=== PATIENT | male | born 1960 | race Caucasian/White ===

== ENCOUNTER 2016-12-19 17:01 | Emergency (ER) | payer OTHER ==
[~2016-12-19] VITALS: Ht 152.4 cm; Wt 70.5 kg
[~2016-12-19 17:01] MED LIST: ATORVASTATIN PO; PEPCID PO; POLY10DR19 RIGHT EYE; PRILOSEC PO
[2016-12-19 17:04] VITALS: Ht 152.4 cm; Wt 70.5 kg
[2016-12-19] MEDS ORDERED: BACI28.34 TOP (18:18)
[2016-12-19 18:31] VITALS: BP 119/66; PULSE 66; RESP 20
--- NOTE | 2016-12-21 11:10 | ERD ---
ER Documentation Chief Complaint Chief Complaint Complains of laceration to left index finger today HPI Patient is a [id number] 56-year-old male presenting to the emergency department with complaints of laceration to his left index finger which occurred a few minutes prior to arrival. Tetanus is up-to-date. The patient has constant, mild pain. Bleeding was controlled. He denies fevers, chills, or other symptoms currently. ROS All systems reviewed and are negative except as per history of present illness. Medications Home Meds Active Scripts Bacitracin* (Bacitracin Zinc Oint*) 28.35 Gm Oint, 1 APPLIC TOP BID, #1 TUB APPLI TO Prov:MERLIN HE PA-C 12/19/16 Polymyxin B Sulfate-TMP* (Polymyxin B-TMP Eye Drops*) 10 Ml Drops, 1 DROP RIGHT EYE QID for 7 Days, EA Prov:DORIS VALLADARES MD 07/10/15 Reported Medications [Atorvastatin] No Conflict Check, PO DAILY 10/05/14 [Pepcid] No Conflict Check, PO DAILY 10/05/14 [Prilosec] No Conflict Check, PO DAILY 10/05/14 Allergies Allergies: Coded Allergies: No Known Allergies (Verified Allergy, Unknown, 10/05/14) PMhx/Soc History of Surgery: No Anesthesia Reaction: No Hx Neurological Disorder: No Hx Respiratory Disorders: No Hx Cardiac Disorders: No Hx Psychiatric Problems: No Hx Miscellaneous Medical Probl: Yes (HIGH CHOLESTEROL) Hx Alcohol Use: Yes (OCCASIONAL) Hx Substance Use: No Hx Tobacco Use: No Smoking Status: Never smoker Physical Exam Vitals Vital Signs Date Time Temp Pulse Resp B/P Pulse Ox O2 Delivery O2 Flow Rate FiO2 12/19/16 18:31 66 20 119/66 98 Room Air 12/19/16 17:04 97.7 95 20 136/76 98 Physical Exam Const: Nontoxic, well-appearing male in no acute distress. Head: Atraumatic Eyes: Normal Conjunctiva ENT: Normal External Ears, Nose and Mouth. Skin: There is an approximate 1 cm laceration noted to the medial aspect of the left index finger with no evidence of foreign body. No active bleeding currently. Back: No midline or flank tenderness Ext: No cyanosis, or edema Neur: Awake and alert Psych: Normal Mood and Affect Procedures/MDM 56-year-old male presents to the emergency department with complaints of laceration to left index finger. Patient tolerated procedure well with no complications. Laceration Repair by me: Anesthesia: 1% lidocaine locally Location: Medial aspect of left index finger Tendon/Joint/Nerves: No injury Foreign body: None detected after copious irrigation and exploration Technique: Simple Interrupted Sutures Complexity: No subcutaneous sutures/mucosal repair/ edge excision Post Closure Length: 1 cm Patient's bleeding was easily controlled in the department and there is no indication of anemia. No evidence of compartment syndrome, neurologic injury, vascular injury, open joint, tendon laceration, or foreign body. Patient is appropriate for outpatient follow up. 48 hour wound check. Scar minimization instructions given. Departure Diagnosis: Primary Impression: Laceration of left index finger Encounter type: initial encounter Damage to nail status: without damage Foreign body presence: without foreign body Qualified Code: S61.211A - Laceration of left index finger without foreign body without damage to nail, initial encounter Condition: Fair Patient Instructions: Laceration, Hand Additional Instructions: Return in 48 hours for wound recheck. Return in 7 days from today for suture removal. Keep the wound clean, dry, covered, and use bacitracin. Follow up with your PCP within the next 1-3 days for a repeat evaluation. If you require a referral to a specialist, your Primary Care Provider may be able to provide this for you. In most patient cases, a referral is not required. If you have further questions regarding this matter, please ask your Primary Care Provider. Return the the emergency department immediately if symptoms worsen or change. If you have any questions regarding medications, ask your pharmacist or us before you leave. If any adverse reactions, occur while taking your medications, discontinue the treatment and return to the emergency department immediately. If any new or worsening symptoms, uncontrolled fevers, or other unexplained symptoms occur, return to the emergency department immediately. Take your medications as directed, and complete the entire course of treatment. MERLIN HE PA-C Dec 21, 2016 11:10
== END 2016-12-19 18:32 | disposition home or self-care (01) ==
LOC: FTE 17:01
DX: S61.211A Laceration without foreign body of left index finger without damage to nail, initial encounter (principal); X58.XXXA Exposure to other specified factors, initial encounter; Y92.9 Unspecified place or not applicable
CPT/HCPCS: 12001; Z7502

== ENCOUNTER 2016-12-22 14:15 | Emergency (ER) | payer OTHER ==
[~2016-12-22] VITALS: Ht 167.6 cm; Wt 70.5 kg
[~2016-12-22 14:15] MED LIST changes: +BACI28.34 TOP
[2016-12-22 14:44] VITALS: Ht 167.6 cm; Wt 70.5 kg
--- NOTE | 2016-12-22 18:14 | ERD ---
ER Documentation Chief Complaint Chief Complaint 2days wound check left 2nd finger HPI Patient is a 56-year-old male presenting to the emergency department for wound check of his left index finger. He has no complaints currently. ROS All systems reviewed and are negative except as per history of present illness. Medications Home Meds Active Scripts Bacitracin* (Bacitracin Zinc Oint*) 28.35 Gm Oint, 1 APPLIC TOP BID, #1 TUB APPLI TO Prov:MERLIN HE PA-C 12/19/16 Polymyxin B Sulfate-TMP* (Polymyxin B-TMP Eye Drops*) 10 Ml Drops, 1 DROP RIGHT EYE QID for 7 Days, EA Prov:DORIS VALLADARES MD 07/10/15 Reported Medications [Atorvastatin] No Conflict Check, PO DAILY 10/05/14 [Pepcid] No Conflict Check, PO DAILY 10/05/14 [Prilosec] No Conflict Check, PO DAILY 10/05/14 Allergies Allergies: Coded Allergies: No Known Allergies (Verified Allergy, Unknown, 10/05/14) PMhx/Soc History of Surgery: No Anesthesia Reaction: No Hx Neurological Disorder: No Hx Respiratory Disorders: No Hx Cardiac Disorders: No Hx Psychiatric Problems: No Hx Miscellaneous Medical Probl: Yes (HIGH CHOLESTEROL) Hx Alcohol Use: Yes (OCCASIONAL) Hx Substance Use: No Hx Tobacco Use: No Smoking Status: Never smoker Physical Exam Vitals Vital Signs Date Time Temp Pulse Resp B/P Pulse Ox O2 Delivery O2 Flow Rate FiO2 12/22/16 14:44 98.4 99 18 124/72 98 Physical Exam Const: Nontoxic, well-appearing male in no acute distress. Head: Atraumatic Eyes: Normal Conjunctiva Skin: [address] to the left index finger on the ventral surface over a well healing laceration. Procedures/MDM 56-year-old male presents for wound check. Laceration appears to be healing well with no signs of cellulitis or other emergency. Patient is to follow-up in 7 days from the date of his suture placement to have the sutures removed. Patient was in agreement. The patient may follow-up with his primary care physician or return to this emergency room sooner if any new or worsening symptoms occur. Departure Diagnosis: Primary Impression: Encounter for wound re-check Condition: Fair Patient Instructions: Wound Care Referrals: LATISHA NORRIS (PCP) Additional Instructions: Make sure to have her sutures removed before you leave for your vacation either here or with your primary care doctor. Call your primary care doctor TOMORROW for an appointment during the next 2-3 days.See the doctor sooner or return here if your condition worsens before your appointment time. MERLIN HE PA-C Dec 22, 2016 18:14
== END 2016-12-22 15:10 | disposition home or self-care (01) ==
LOC: FTE 14:15
DX: Z48.01 Encounter for change or removal of surgical wound dressing (principal)
CPT/HCPCS: 99281

== ENCOUNTER 2016-12-24 13:06 | Emergency (ER) | payer OTHER ==
[~2016-12-24] VITALS: Ht 180.3 cm; Wt 70.0 kg
[2016-12-24 13:11] VITALS: Ht 180.3 cm; Wt 70.0 kg
--- NOTE | 2016-12-24 15:38 | ERD ---
ER Documentation Chief Complaint Chief Complaint suture removal left finger HPI 56-year-old male presents for removal of the sutures from his left index finger which she sustained from a cut 6 days ago. He did come in for his 2 day recheck that time had no signs of infection. He states that he does not have any pain at the finger. ROS All systems reviewed and are negative except as per history of present illness. Medications Home Meds Active Scripts Bacitracin* (Bacitracin Zinc Oint*) 28.35 Gm Oint, 1 APPLIC TOP BID, #1 TUB APPLI TO Prov:MERLIN HE PA-C 12/19/16 Polymyxin B Sulfate-TMP* (Polymyxin B-TMP Eye Drops*) 10 Ml Drops, 1 DROP RIGHT EYE QID for 7 Days, EA Prov:DORIS VALLADARES MD 07/10/15 Reported Medications [Atorvastatin] No Conflict Check, PO DAILY 10/05/14 [Pepcid] No Conflict Check, PO DAILY 10/05/14 [Prilosec] No Conflict Check, PO DAILY 10/05/14 Allergies Allergies: Coded Allergies: No Known Allergies (Verified Allergy, Unknown, 10/05/14) PMhx/Soc Medical and Surgical Hx: pt denies Surgical Hx History of Surgery: No Anesthesia Reaction: No Hx Neurological Disorder: No Hx Respiratory Disorders: No Hx Cardiac Disorders: No Hx Psychiatric Problems: No Hx Miscellaneous Medical Probl: Yes (HIGH CHOLESTEROL) Hx Alcohol Use: Yes (OCCASIONAL) Hx Substance Use: No Hx Tobacco Use: No Smoking Status: Never smoker Physical Exam Vitals Vital Signs Date Time Temp Pulse Resp B/P Pulse Ox O2 Delivery O2 Flow Rate FiO2 12/24/16 13:11 98.4 93 181 118/76 97 Physical Exam Const: [] No distress Ext: No cyanosis, or edema, no surrounding erythema or signs of infection, well-healed lacerations. Procedures/MDM Suture removal without complications. No signs of infection. Discharging primary care follow-up. Suture removal note: After cleaning with alcohol, forceps and suture scissors were used to remove 4 Prolene simple interrupted sutures. Patient tolerated it the procedure with no complications. Departure Diagnosis: Primary Impression: Encounter for removal of sutures Condition: Stable Patient Instructions: Suture Removal, No Complication Referrals: LATISHA NORRIS (PCP) Additional Instructions: Call your primary care doctor TOMORROW for an appointment during the next 2-3 days.See the doctor sooner or return here if your condition worsens before your appointment time. MARY JO GAMINO DO Dec 24, 2016 15:38
[2016-12-24] MEDS ORDERED: OMEP20CA16 PO (15:41)
[2016-12-24 15:42] VITALS: BP 122/71; PULSE 79; RESP 18; TEMP 98
== END 2016-12-24 15:44 | disposition home or self-care (01) ==
LOC: E/R 13:06
DX: Z48.02 Encounter for removal of sutures (principal)
CPT/HCPCS: 99281